=== PATIENT | female | born 1975 | race Caucasian/White ===

== ENCOUNTER 2018-08-25 10:04 | Inpatient (IN) | payer OTHER ==
[~2018-08-25] VITALS: Ht 157.5 cm; Wt 97.9 kg
--- NOTE | ~2018-08-25 | OP ---
[address] [address] OPERATIVE REPORT Name: TIMI Shadia RICKS Room: [address] [place] .R.#: [id number] Admission: 08/25/18 Attend Phys: Cortney Nolan Discharge: Date of : 71 Report #: [id number] THIS REPORT FOR: //name// CC: Joanna Temple DATE OF SERVICE: 08/26/2018 INDICATIONS: The patient is a 43-year-old female who was admitted through the Emergency Department due to severe right flank pain associated with nausea and vomiting. Evaluation with CT scan revealed an 8 mm right proximal ureteral calculus causing obstruction. Due to consistent pain and nausea and after discussing all risks and benefits, she elects to proceed with cystoscopy with right ureteroscopic stone extraction with holmium laser lithotripsy and stent placement. PREOPERATIVE DIAGNOSIS: Right ureteral calculus. POSTOPERATIVE DIAGNOSIS: Right ureteral calculus. PROCEDURE: Dilation of urethral stenosis, cystoscopy, right ureteroscopic stone extraction using holmium laser lithotripsy, right double-J stent placement. SURGEON: Alex Duran MD ANESTHESIA: General. COMPLICATIONS: None. ESTIMATED BLOOD LOSS: 20 mL. PROCEDURE IN DETAIL: The patient was consented for the above procedure. She was given broad spectrum IV antibiotics preoperatively and general anesthetic. She was placed in a dorsal lithotomy position. She was prepped and draped in usual sterile fashion over the genitalia. I initially tried to insert the 22-Chinese scope with a 30-degree lens into the urethra without success due to urethral stenosis. I was able to then pass the 17-Chinese sheath with the aid of an obturator and had a definite pop of urethral stenosis. I was then able to pass the 22-Chinese sheath with the aid of an obturator and on examining the urethra, it appeared that the patient definitely had urethral stenosis that was dilated with 17-sheath. After getting the scope into the bladder, the bladder was thoroughly evaluated. There was no evidence of stones, ulcerations or tumors within the bladder itself. The ureteral orifices were easily identified in the proper position. The stone was easily seen on fluoroscopy. Based on that, a 0.035 floppy tipped guidewire was passed up the right ureter, past the stone into the right renal pelvis [place] [address] OPERATIVE REPORT Name: TIMI Shadia RICKS Room: [address]#: [id number] Admission: 08/25/18 Attend Phys: Cortney Nolan Discharge: Date of : 71 Report #: [id number] concentrated urine drained. Next, an 07/01, 28 cm ureteral access sheath was passed over the guidewire under fluoroscopic guidance and was passed readily up the right ureter to about the mid portion without difficulty. Next, the trocar and wire were removed leaving the access sheath in place. Next, a flexible ureteroscope was used to perform ureteroscopy. This large stone was identified in the proximal ureter and was fairly impacted. However, with manipulation with the scope, the stone popped back up into the renal pelvis. I was able to deposit the stone into one of the upper pole calices and then using a 200 micron holmium laser, I was able to fragment the stone into very small passable fragments. A few of the larger fragments were basketed with a 0 tip nitinol stone basket and will be sent off for stone analysis. The remaining pieces that were left behind were all very small and should be of passable size. Once I was confident that all larger stone fragments were broken up, I elected to halt the procedure. The ureteroscope was removed. The guidewire was passed back up the access sheath under fluoroscopic guidance. The access sheath was removed leaving the guidewire in place. Next, a 4.8 x 26 double-J stent was passed over the wire with good curl noted in the renal pelvis and in the bladder after removing the wire. This was confirmed with fluoroscopy and cystoscopy. Next, the bladder was drained, the scope was removed. A Uro-Jet was placed per urethra for local anesthesia. She was awakened and sent to recovery room where she remained in stable condition. We will leave the stent in for at least a week, obtain a KUB in the office and stent removal as long as no sizable fragments were left behind. By: [id number] Duran MD /yuri
[~2018-08-25 10:04] MED LIST: CIPROFLOXACIN500 M1 PO; ESTRACE0.5 MG PO; FLOMAX PO; HYDROCODON-ACE1 EAC7 PO; LISINOPRIL20 MG PO; PERCOCET 5-3251 EACH PO; PRILOSEC 20 MG20 MG PO; PROMETHAZINE12.5 M1 PO
[2018-08-25 10:15] VITALS: BP 139/79
[2018-08-25] MEDS ORDERED: ATORVASTATIN CA40 MG PO (10:17)
[2018-08-25] MEDS ORDERED: MELOXICAM7.5 MG PO (10:19)
[2018-08-25 10:28] LABS: ABSOLUTE EOSINOPHILS 0.1 thou/uL (0.0-0.7); ABSOLUTE LYMPHOCYTES 1.7 thou/uL (0.8-5.3); ABSOLUTE MONOCYTES 0.8 thou/uL (0.0-1.2); ABSOLUTE NEUTROPHILS 4.2 thou/uL (1.6-8.1); BASOPHILS 0.5 %; EOSINOPHILS 1.7 %; HEMATOCRIT 38.2 % (37.0-47.0); HEMOGLOBIN 12.9 gm/dL (12.0-15.0); LYMPHOCYTES 25.1 %; MCHC 33.9 g/dL (28.0-37.0); MCV 85.7 fL (80.0-100.0); MPV 7.8 fl. (7.2-11.1); NUCLEATED RBCS 0 /100WBC; PLATELET COUNT* 251 thou/uL (150-400); POLYS 61.7 %; RBC 4.46 mil/uL (4.20-5.00); RDW-CV 14.9 % (10.5-14.5); WBC 6.9 thou/uL (4.0-11.0)
[2018-08-25 10:30] LABS: URINE BILIRUBIN NEGATIVE (Negative); URINE BLOOD 1+ (Negative); URINE CLARITY CLEAR; URINE COLOR YELLOW; URINE GLUCOSE-RANDOM NEGATIVE (Negative); URINE KETONES NEGATIVE (Negative); URINE LEUKOCYTES-REFLEX NEGATIVE (Negative); URINE NITRITE-REFLEX NEGATIVE (Negative); URINE PROTEIN NEGATIVE (Negative); URINE UROBILINOGEN 0.2 E.U./dl (0.2-1.0)
[2018-08-25 10:35] LABS: CREATININE 0.8 mg/dL (0.6-1.3); POTASSIUM 3.9 mmol/L (3.5-5.1)
[2018-08-25 10:38] LABS: BACTERIA-REFLEX 1-9 Few /HPF (None Seen); CASTS None Seen /LPF (None Seen); CRYSTALS None Seen /LPF (None Seen); MUCUS None Seen strn/LPF (None Seen); SQUAMOUS 4-10 Moderate /LPF (0-3); URINE RBC 3-10 Few /HPF (0-2); URINE WBC-REFLEX 0-5 Rare /HPF (0-5)
[2018-08-25 10:40] LABS: ALBUMIN 3.9 g/dL (3.4-5.0); TOTAL BILIRUBIN 0.3 mg/dL (<0.1-1.0); TOTAL PROTEIN 7.6 g/dL (6.4-8.2)
--- NOTE | 2018-08-25 11:08 | NUR ---
DENNY NOTIFIED UPON PT RETURN FROM CT. PT CONNECTED TO BP AND PULSE OX MONITOR
[2018-08-25 13:21] VITALS: BP 118/78
[2018-08-25 13:29] VITALS: BP 120/75
--- NOTE | 2018-08-25 13:41 | NUR ---
PATIENT CAME TO THE FLOOR FROM THE ER VIA CART IN STABLE CONDITION. VITALS SIGNS STABLE ON ROOM AIR. IS BEDSIDE AT WITH PATIENT. ROOM ORIENTATION AND ADMISSION ASSESSMENT DONE. QUESTIONS ANSWERED FOR PATIENT AND FAMILY. CALL LIGHT IS IN REACH, WILL CONTINUE TO MONITOR,
[2018-08-25 16:16] VITALS: BP 120/75
[2018-08-25 16:37] VITALS: BP 112/66
--- NOTE | 2018-08-25 17:44 | NUR ---
PATIENT IS ALERT AND ORIENTED TODAY VERY PLEASANT. VITAL SIGNS STABLE ON ROOM AIR. PAIN THAT IS CONTROLLED WITH IV PAIN MEDICATIONS FLUIDS RUNNING IN LEFT FOREARM. PATIENT WILL BE NPO AFTER MIDNIGHT FOR PROCEDURE TOMORROW. CALL LIGHT IS IN REACH WILL CONTINUE TO MONITOR.
--- NOTE | 2018-08-25 18:34 | NUR ---
ASSUMED CARE OF PATIENT AT 1800. ALERT AND ORIENTED X4. UP AD ROBERTH IN ROOM. IV IS PATENT AND INFUSING. PAIN BEING MANAGED WITH IV PAIN MEDICATION. NAUSEA MANAGED WITH IV NAUSEA MEDICATION. VSS ON ROOM AIR. HOURLY ROUNDS HAVE BEEN MAINTAINED THROUGHOUT SHIFT. CALL LIGHT IS WITHIN REACH. NURSING WILL CONTINUE TO MONITOR.
[2018-08-25 20:10] VITALS: BP 111/69
[2018-08-26] VITALS: BP 106/51
[2018-08-26 04:00] VITALS: BP 102/49
--- NOTE | 2018-08-26 04:54 | NUR ---
PATIENT RESTED IN BED, NO ACUTE CHANGES. PATIENT IS NOT SHOWING SIGNS OF DISTRESS. NO STONES FOUND IN URINE. CALL LIGHT WITHIN REACH, HOURLY ROUNDING OBSERVED.
[2018-08-26 08:15] VITALS: BP 127/82
[2018-08-26 14:10] VITALS: BP 120/75
[2018-08-26 15:06] VITALS: BP 120/75
--- NOTE | 2018-08-26 18:27 | NUR ---
PATIENT ARRIVED BACK TO UNIT AT 1814. ALERT AND ORIENTED X4. IV IS PATENT AND INFUSING. DENIES NEED FOR PAIN MEDICATION AT THIS TIME. DENIES NEED FOR NAUSEA MEDICATION AT THIS TIME. TOLERATING DIET. PASSING BLOODY URINE AT THIS TIME D/T STENT PLACEMENT. VSS ON ROOM AIR. HOURLY ROUNDS HAVE BEEN MAINTAINED THROUGHOUT SHIFT WHILE ON UNIT. CALL LIGHT IS WITHIN REACH. NURSING WILL CONTINUE TO MONITOR.
[2018-08-26 22:27] VITALS: BP 132/84
[2018-08-27 00:21] VITALS: BP 116/59
[2018-08-27 04:38] VITALS: BP 112/54
--- NOTE | 2018-08-27 05:01 | NUR ---
ASSUMED CARE OF PT AT 1900 PT ALERT AND ORIENTED X4 VS AND ASSESSMENT STABLE. PT REQUESTED MED FOR BLADDER SPASMS, CONTACTED PROVIDER. PT SLEPT THROUGH THE NIGHT. WILL CONTINUE PLAN OF CARE.
[2018-08-27 08:17] VITALS: BP 122/62
[2018-08-27 09:36] VITALS: BP 122/62
[2018-08-27] MEDS ORDERED: LEVSIN0.125 MG PO (11:38)
[2018-08-27] MEDS ORDERED: NORCO 5-325 TA1 EACH PO (11:41)
[2018-08-27] MEDS ORDERED: FLOMAX0.4 MG PO (11:42)
== END 2018-08-27 13:03 | disposition home or self-care (01) | DRG 660 ==
LOC: M.ERS 10:04 → M.ORTHSURG 12:25 → M.TBA-ER 12:25 → M.ORTHSURG 12:56
PROVIDERS: Nurse Practitioner Family; ADMIT Internal Medicine
PROC: BT1D1ZZ Fluoroscopy of Right Kidney, Ureter and Bladder using Low Osmolar Contrast (ICD-10-PCS; principal; 2018-08-26)
PROC: 0T768DZ Dilation of Right Ureter with Intraluminal Device, Via Natural or Artificial Opening Endoscopic (ICD-10-PCS; principal; 2018-08-26)
PROC: 0TC68ZZ Extirpation of Matter from Right Ureter, Via Natural or Artificial Opening Endoscopic (ICD-10-PCS; principal; 2018-08-26)
DX: N13.2 Hydronephrosis with renal and ureteral calculous obstruction (principal); Q61.5 Medullary cystic kidney; K21.9 Gastro-esophageal reflux disease without esophagitis; I10 Essential (primary) hypertension; E78.5 Hyperlipidemia, unspecified; R31.29 Other microscopic hematuria; Z87.442 Personal history of urinary calculi; Z90.49 Acquired absence of other specified parts of digestive tract; Z90.710 Acquired absence of both cervix and uterus; Z79.899 Other long term (current) drug therapy; Z88.0 Allergy status to penicillin; Z82.5 Family history of asthma and other chronic lower respiratory diseases; Z82.49 Family history of ischemic heart disease and other diseases of the circulatory system; Z83.3 Family history of diabetes mellitus; Z82.69 Family history of other diseases of the musculoskeletal system and connective tissue

== ENCOUNTER → 2019-04-14 | Outpatient (CLI) | payer OTHER ==
[~2019-04-14] MED LIST changes: +ATORVASTATIN CA40 MG PO; +FLOMAX0.4 MG PO; +LEVSIN0.125 MG PO; +MELOXICAM7.5 MG PO; +NORCO 5-325 TA1 EACH PO
== END ==
LOC: M.RAD 06:47
DX: Z12.31 Encounter for screening mammogram for malignant neoplasm of breast (principal)